=== PATIENT | male | born 2000 | race Caucasian/White ===

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

== ENCOUNTER 2021-05-12 14:03 | Emergency (ER) | payer OTHER ==
[2021-05-12 14:15] VITALS: BP 153/72; PULSE 92; O2SAT 98
[2021-05-12] MEDS ORDERED: TORAdol 30 mg Injection IM ONE (14:28)
--- NOTE | 2021-05-12 14:33 | ERPHSYRPT ---
- History of Present Illness Source: patient Exam Limitations: no limitations Patient Subjective Stated Complaint: Pt states "I was lifting a trailer and I had pain shoot from my lower back and shot pain all the way down my right leg." Triage Nursing Assessment: PT presented alert and oriented X 3, skin pwd. pt ambulates with a stiff slow gait. pt in no apparent respiratory disttress. Physician History: 20 yo wm w R paraspinous pain after lifting trailor at work. Pain 10 on scale and worse w moving/bending. It does not radiate. He denies any dysuria/hematuria/incontinence of stool-urine. It does radiate occ down his R leg. Timing/Duration: today Method of Injury: lifting Quality: sharp Back Pain Location: paraspinous muscles (R) Back Pain Radiation: lower legs Severity of Pain-Max: severe Severity of Pain-Current: severe Modifying Factors: Improves With: movement Associated Symptoms: lower back pain, No fever, No chills, No sweating, No urinary incontinence, No loss of bowel control, No constipation, No nausea, No vomiting, No problems urinating, No light-headedness, No dizziness, No numbness in legs/feet, No weakness, No sensory/motor loss, No tingling in legs/feet, No muscle spasms Previous symptoms: no prior history Allergies/Adverse Reactions: sulfamethoxazole [From Bactrim] Allergy (Verified 05/06/17 16:31) trimethoprim [From Bactrim] Allergy (Verified 05/06/17 16:31) Home Medications: No Reportable Medications [No Reported Medications] 05/12/21 [History] Hx Tetanus, Diphtheria Vaccination/Date Given: Yes Hx Influenza Vaccination/Date Given: No Hx Pneumococcal Vaccination/Date Given: No Immunizations Up to Date: Yes Travel Risk - International Travel Have you traveled outside of the country in past 3 weeks: No - Coronavirus Screening Are you exhibiting any of the following symptoms?: No Close contact with a COVID-19 positive Pt in past 14-21 Days: No - Vaccine Status Have you recieved a Covid-19 vaccination: No - Review of Systems Constitutional: No Symptoms Eyes: No Symptoms Ears, Nose, & Throat: No Symptoms Respiratory: No Symptoms Cardiac: No Symptoms Abdominal/Gastrointestinal: No Symptoms Genitourinary Symptoms: No Symptoms Musculoskeletal: No Symptoms, Back Pain Skin: No Symptoms Neurological: No Symptoms Psychological: No Symptoms Endocrine: No Symptoms Hematologic/Lymphatic: No Symptoms Immunological/Allergic: No Symptoms - Past Medical History Pertinent Past Medical History: Yes Neurological History: No Pertinent History ENT History: No Pertinent History Cardiac History: No Pertinent History Respiratory History: Asthma Endocrine Medical History: No Pertinent History Musculoskeletal History: No Pertinent History GI Medical History: GERD, Other History: No Pertinent History Psycho-Social History: No Pertinent History Male Reproductive Disorders: No Pertinent History Other Medical History: recent visit to er for acute ilness sent to [facility] for IV fluids per [employer], childhood asthma - Past Surgical History Past Surgical History: Yes Neuro Surgical History: No Pertinent History Cardiac: No Pertinent History Respiratory: No Pertinent History Gastrointestinal: Appendectomy Genitourinary: No Pertinent History Musculoskeletal: No Pertinent History Male Surgical History: No Pertinent History, Other Other Surgical History: circumcision at 1 y/o. appi - Social History Smoking Status: Never smoker Exposure to second hand smoke: No Alcohol Use: None Drug Use: none Patient Lives Alone: No Significant Family History: no pertinent family hx - Nursing Vital Signs Nursing Vital Signs: Initial Vital Signs Temperature 98.1 F 05/12/21 14:10 Pulse Rate 92 H 05/12/21 14:10 Respiratory Rate 22 05/12/21 14:10 Blood Pressure 153/72 05/12/21 14:10 O2 Sat by Pulse Oximetry 98 05/12/21 14:10 Pain Scale Pain Intensity [Right Lower 8 Back] Pain Intensity 8 Hypertensive - Physical Exam General Appearance: no apparent distress Eye Exam: PERRL/EOMI Ears, Nose, Throat Exam: normal ENT inspection, TMs normal, pharynx normal, moist mucous membranes Neck Exam: normal inspection, non-tender, supple, full range of motion, No meningismus, No mass, No Brudzinski, No Kernig's Respiratory Exam: normal breath sounds, lungs clear, airway intact Cardiovascular Exam: regular rate/rhythm, normal heart sounds, normal peripheral pulses, No murmur Gastrointestinal Exam: soft, normal bowel sounds, No tenderness Back Exam: normal range of motion, other (R paraspinous TTP/symmetric reflexes B/No pain w straight leg raises), No vertebral tenderness Extremity Exam: normal inspection, normal range of motion, pelvis stable Neurologic Exam: alert, oriented x 3, cooperative, 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, normal mood/affect, nml cerebellar function, sensation nml, No motor deficits, No sensory deficit Skin Exam: normal color Lymphatic Exam: No adenopathy SpO2 Interpretation: normal SpO2: 98 O2 Delivery: Room Air - Course Nursing assessment & vital signs reviewed: Yes Ordered Tests: Medication Summary Discontinued Medications Generic Name Dose Route Start Last Admin Trade Name Cr PRN Reason Stop Dose Admin Ketorolac Tromethamine 60 mg 05/12/21 14:28 05/12/21 14:52 Ketorolac Tromethamine 30 Mg/Ml Inj IM 05/12/21 14:29 60 mg STAT ONE Administration Ketorolac Tromethamine Confirm 05/12/21 14:43 Ketorolac Tromethamine 30 Mg/Ml Inj Administered 05/12/21 14:44 Dose 60 mg .ROUTE .STgoviral-MED ONE - Progress Progress: improved Progress Note: 05/12/21 14:34 60mg IM Toradol Counseled pt/family regarding: diagnosis, need for follow-up - Departure Departure Disposition: Home Clinical Impression: Lumbar strain Condition: Stable Critical Care Time: No Instructions: Low Back Pain (DC) Additional Instructions: Rest/Heat/Massage No lifting over 15 pounds for 1 week Lodine/Norflex as needed for pain Follow up with your family or company doctor for continued pain Forms: Work/School Release Form
[2021-05-12] MEDS ORDERED: TORAdol 30 mg Injection ONE (14:43)
== END 2021-05-12 15:05 | disposition home or self-care (01) ==
LOC: ED 14:03
DX: S39.012A Strain of muscle, fascia and tendon of lower back, initial encounter (principal); X50.0XXA Overexertion from strenuous movement or load, initial encounter; Y99.0 Civilian activity done for income or pay
CPT/HCPCS: 96372; 99283; J1885